=== PATIENT | female | born 1950 | race American Indian/Alaskan Native ===

== ENCOUNTER 2017-02-23 09:24 | Emergency (ER) | payer SELFPAY ==
--- NOTE | 2017-02-23 10:25 | Emergency Department Report ---
HPI - General Chief Complaint: Medical Clearance Time Seen by Provider: 02/23/17 10:00 - HPI HPI: 66-year-old Afro-Cypriot female presents to the emergency department from [facility] for a medical clearance. The patient has an existing Moore catheter in place and staff at [facility] stated that they could not accept the patient with a Moore catheter. The patient has a history of insulin- dependent diabetes that has been known to be uncontrolled as well as some diabetic ulcers to the feet. She also has a history of chronic kidney disease, anxiety, depression. The patient says she is unaware as to why she has the Moore catheter in place and says she thinks it was because "I pee a lot." The patient has some paperwork from another hospital that showed the patient to have previous uncontrolled diabetes with pseudohyponatremia. It appears that while she was at this hospital she began bleeding of suicidal ideation secondary to her decline in health. Therefore she presents with a 1013 signed [facility] for active suicidal ideations. Right now the patient's only complaints are that she is hungry and sleepy. ED Past Medical Hx - Past Medical History Hx Diabetes: Yes Hx Renal Disease: Yes (CKD III) Hx Psychiatric Treatment: Yes (anxiety/depression) Additional medical history: toxic metabolic encephalopathy - Social History Smoking Status: Current Every Day Smoker Substance Use Type: None - Medications Home Medications: Home Medications Medication Instructions Recorded Confirmed Last Taken Type Unobtainable 02/23/17 02/23/17 Unknown History ED Review of Systems ROS: Stated complaint: SUICIDAL IDEATION/MEDICAL CLEARANCE Other details as noted in HPI Comment: All other systems reviewed and negative Constitutional: denies: chills, fever Eyes: denies: eye pain, eye discharge, vision change ENT: denies: ear pain, throat pain Respiratory: denies: cough, shortness of breath, wheezing Cardiovascular: denies: chest pain, palpitations Endocrine: increased thirst, increased urine Gastrointestinal: denies: abdominal pain, nausea, diarrhea Genitourinary: frequency. denies: dysuria, discharge Musculoskeletal: denies: back pain, joint swelling, arthralgia Skin: denies: rash, lesions Neurological: denies: headache, weakness, paresthesias Physical Exam - Physical Exam Vital Signs: Vital Signs 02/23/17 02/23/17 09:35 09:56 Temperature 98.1 F Pulse Rate 77 Respiratory 16 16 Rate Blood Pressure 163/92 O2 Sat by Pulse 97 99 Oximetry Physical Exam: GENERAL: The patient is well-developed well-nourished. HEENT: Normocephalic. Atraumatic. Extraocular motions are intact. Patient has moist mucous membranes. Pupils equal reactive to light bilaterally. NECK: Supple. Trachea is midline. CHEST/LUNGS: Clear to auscultation. There is no respiratory distress noted. HEART/CARDIOVASCULAR: Regular. There is no tachycardia. There is no gallop rub or murmur. ABDOMEN: Abdomen is soft, nontender. Patient has normal bowel sounds. There is no abdominal distention. SKIN: Skin is warm and dry. There are some chronic plantar foot ulcerations but no purulent discharge and no surrounding erythema. NEURO: The patient is awake, alert. The patient is cooperative. The patient has no focal neurologic deficits. The patient has normal speech. MUSCULOSKELETAL: There is no tenderness or deformity. There is no evidence of acute injury. ED Course Vital Signs 02/23/17 02/23/17 09:35 09:56 Temperature 98.1 F Pulse Rate 77 Respiratory 16 16 Rate Blood Pressure 163/92 O2 Sat by Pulse 97 99 Oximetry ED Medical Decision Making - Lab Data Result diagrams: 02/23/17 10:10 02/23/17 10:10 - Medical Decision Making 66-year-old female presents to the emergency department from [facility] where she was denied admission for psychiatric admission secondary to the fact that she has a Moore catheter in place. The patient came from another emergency department with paperwork that shows that the patient had suicidal ideations and appeared to be secondary to her depression with her declining health. She was having issues and was admitted there originally because of hyperglycemia and pseudohyponatremia. Patient does have some mild hyperglycemia here today but she does not appear to be in DKA or HHNK and the rest of her labs are mostly unremarkable and do not show any etiology of her symptoms. The patient does have chronic diabetic foot ulcers but she also presents with imaging done recently at this other hospital that shows no signs of osteomyelitis and on physical exam does not appear to be acutely infected. Another 1013 was filled out since she is now on a different county for the same suicidal ideations and the patient will need a psychiatric consultation and probable continued placement. She has a very mild urinary tract infection and will be placed on Macrobid. She will have Accu-Cheks done with meals and will be placed on a sliding scale. Otherwise the patient appears medically cleared for psychiatric placement. Critical Care Time: No Critical care attestation.: If time is entered above; I have spent that time in minutes in the direct care of this critically ill patient, excluding procedure time. ED Disposition Clinical Impression: Suicidal ideations, Hyperglycemia Diabetic foot ulcers Qualifiers: Diabetic foot ulcer location: unspecified part of foot Diabetes mellitus type: type 1 Laterality: unspecified laterality Non-pressure ulcer stage: unspecified non-pressure ulcer stage Qualified Code(s): E10.621 - Type 1 diabetes mellitus with foot ulcer; L97.509 - Non-pressure chronic ulcer of other part of unspecified foot with unspecified severity Disposition: DC/TX-65 PSY HOSP/PSY UNIT Is pt being admited?: No Condition: Stable Instructions: Diabetes Mellitus Type 2 in Adults (ED) Time of Disposition: 18:20
[2017-02-23 10:34] LABS: Bilirubin,Urine NEG (Negative); Blood,Urine LG (Negative); Ketones,Urine NEG (Negative); Leukocyte Esterase,Urine LG (Negative); Nitrite,Urine NEG (Negative); Protein,Urine <15 mg/dL mg/dL (Negative); Urobilinogen,Urine < 2.0 mg/dL (<2.0)
[2017-02-23 10:50] LABS: Basophils % (Auto) 0.4 % (0.0-1.8); Eosinophils % (Auto) 2.7 % (0.0-4.3); Hematocrit 32.2 % (30.3-42.9); Hemoglobin 10.8 gm/dl (10.1-14.3); Mean Corpuscular HGB Conc 34 % (30-34); Mean Corpuscular Hemoglobin 30 pg (28-32); Mean Corpuscular Volume 90 fl (79-97); Platelet Count 228 K/mm3 (140-440); Red Blood Count 3.58 M/mm3 (3.65-5.03); Red Cell Distribution Width 15.4 % (13.2-15.2); White Blood Count 10.7 K/mm3 (4.5-11.0)
[2017-02-23 11:15] LABS: Anion Gap 15 mmol/L; Blood Urea Nitrogen 14 mg/dL (7-17); Calcium 8.5 mg/dL (8.4-10.2); Carbon Dioxide 22 mmol/L (22-30); Chloride 106.8 mmol/L (98-107); Glucose 194 mg/dL (65-100); Potassium 4.1 mmol/L (3.6-5.0); Sodium 140 mmol/L (137-145)
[2017-02-23] MEDS ORDERED: MACROBID PO ONE (11:42)
[2017-02-23] MEDS ORDERED: XANAX PO ONE (14:18)
--- NOTE | 2017-02-23 16:33 | Consultation ---
History of Present Illness - Reason for Consult Consult date: 02/23/17 Reason for consult: psychiatric evaluation, depression - Chief Complaint Chief complaint: "It's too hard living, I want to " 66-year-old female seen in the emergency department for psychiatric evaluation. She was initially in a hospital in [place] and determined to be experiencing severe depressive symptoms. She was transferred to [place] inpatient facility, and she was not admitted there due to medical acuity and was then brought to [facility]. It is reported she has a Moore catheter and a decubitus. She is alert and oriented 4 on exam. She states she's been depressed ever since her toe was amputated in October 2016. She states from then she quit eating and did not take her insulin. She states she stopped caring about herself and did not take care of her ADLs. She gave her food stamp card away because she wasn't eating. She states her brother's been paying her bills because she can't. 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 She expresses hopeless and helpless ideation. She denies psychotic symptoms. She reports taking Prozac, unknown dose. She denies homicidal ideation. She denies a history of dementia. Medications and Allergies Allergies Allergy/AdvReac Type Severity Reaction Status Date / Time No Known Allergies Allergy Verified 02/23/17 09:45 Home Medications Medication Instructions Recorded Confirmed Last Taken Type Unobtainable 02/23/17 02/23/17 Unknown History Past psychiatric history - Past Medical History Past Medical History: other (has Moore catheter, decubitus) - past Psychiatric treatment and history Psych: Depression psychiatric treatment history: Denies a history of bipolar disorder Denies a history of manic symptoms - Social History Social history: Lives alone, other (denies alcohol or illicit substance use) Mental Status Exam - Vital signs Last Vital Signs Temp 98.1 F 02/23/17 09:35 Pulse 68 02/23/17 13:49 Resp 16 02/23/17 13:49 BP 124/78 02/23/17 13:49 Pulse Ox 99 02/23/17 13:49 - Exam Orientation: time, place, person Affect: depressed (dysphoric) Mood: congruent with affect Thought content: other (suicidal ideation) Thought Process: Intact Perceptions: none Speech: other (soft) Concentration: focused Motor activity: other (retarded) Level of consciousness: alert Memory: Intact Sleep Symptoms: Difficulty Falling Asleep Appetite: decreased Interaction: cooperative Results Result Diagrams: 02/23/17 10:10 02/23/17 10:10 Abnormal lab results 02/23/17 02/23/17 02/23/17 Range/Units 09:27 09:45 10:10 RBC 3.58 L (3.65-5.03) M/mm3 RDW 15.4 H (13.2-15.2) % Seg Neutrophils % 74.4 H (40.0-70.0) % Seg Neutrophils # 8.0 H (1.8-7.7) K/mm3 Glucose (65-100) mg/dL POC Glucose 247 H (70-105) Urine WBC (Auto) 15.0 H (0.0-6.0) /HPF 02/23/17 Range/Units 10:10 RBC (3.65-5.03) M/mm3 RDW (13.2-15.2) % Seg Neutrophils % (40.0-70.0) % Seg Neutrophils # (1.8-7.7) K/mm3 Glucose 194 H (65-100) mg/dL POC Glucose (70-105) Urine WBC (Auto) (0.0-6.0) /HPF All other labs normal. Assessment and Plan Assessment and plan: Impression: Suicidal ideation Purposefully stopped self-care gradually over the past few months Major depressive disorder, severe Vegetative symptoms of depression Recommendation: Given the severity of the depression and the impact on her physical health, she is a good candidate for ECT. Once acute medical problems are addressed, plan for transfer to inpatient psychiatric unit. A psychiatric unit with medical capabilities is preferable, as well as access to ECT. It is unclear if this is available. Start Prozac 20 mg daily for depressive symptoms. She reports taking this medication at home.
[2017-02-23] MEDS ORDERED: D50W (25GM) IV PRN (18:10)
[2017-02-24] MEDS: PROzac PO SCH (14:48)
--- NOTE | 2017-02-24 19:46 | Progress Note ---
Subjective - Reason for Consult Consult date: 02/24/17 Reason for consult: follow up - Chief Complaint Chief complaint: "I'm not good" 66-year-old female seen in the emergency department for psychiatric follow up. She was initially in a hospital in [place] and determined to be experiencing severe depressive symptoms. She was transferred to [place] inpatient facility, and she was not admitted there due to medical acuity and was then brought to [facility]. It is reported she has a Moore catheter a vascular wound on her right foot. She is alert and oriented 4 on exam. She states she's been depressed ever since her toe was amputated in October 2016 and when she was fired from the [employer]. She states that was her extra income to live on and eat. She states from then she quit eating and did not take her insulin. She expresses hopeless and helpless ideation. She denies psychotic symptoms. She does not want to take prozac and states it has been ineffective. She denies homicidal ideation. She denies a history of dementia. She does not remember meeting this author yesterday but later remembered. Mental Status Exam - Vital signs Last Vital Signs Temp 98.1 F 02/23/17 20:00 Pulse 75 02/23/17 20:00 Resp 20 02/23/17 20:00 BP 120/68 02/23/17 20:00 Pulse Ox 99 02/23/17 20:00 - Exam Narrative exam: - Exam Orientation: time, place, person Affect: depressed (dysphoric) Mood: congruent with affect Thought content: other (suicidal ideation) Thought Process: Intact Perceptions: none Speech: regular rate and rhythm today, was yelling earlier in the day Concentration: focused Motor activity: other (retarded) but ambulatory Level of consciousness: alert Memory: Intact Sleep Symptoms: Difficulty Falling Asleep Appetite: decreased Interaction: cooperative Assessment and Plan Impression: Suicidal ideation Purposefully stopped self-care gradually over the past few months Major depressive disorder, severe Vegetative symptoms of depression Recommendation: Given the severity of the depression and the impact on her physical health, she is a good candidate for ECT. Once acute medical problems are addressed, plan for transfer to inpatient psychiatric unit. A psychiatric unit with medical capabilities is preferable, as well as access to ECT. It is unclear if this is available. Continue Prozac 20 mg daily for depressive symptoms. She reports taking this medication at home. Plan to add Remeron 7.5mg hs for sleep/depression and it would help with her appetite
[2017-02-24] MEDS ORDERED: AMBIEN PO ONE (21:30)
[2017-02-24] MEDS: MACROBID PO SCH (21:55)
[2017-02-25] MEDS ORDERED: BENADRYL PO ONE (03:23)
[2017-02-25] MEDS ORDERED: ATIVAN PO ONE (03:23)
--- NOTE | 2017-02-25 03:25 | Emergency Department Report ---
Blank Doc - Documentation Documentation: It was brought to my attention by RN that patient woke up complaining of shortness of breath. Patient states she is having difficulty sleeping and that her shortness of breath feels like her previous anxiety episodes. Patient received Ambien 5 mg and stayed sleep for about 2 hours and woke up feeling this way. EKG shows normal sinus rate [address] [place]. Patient satting 96% on room air. No tachypnea or tachycardia noted. Ativan 1 mg and Benadryl 25 mg to 8 and patient's anxiety and sleep.
[2017-02-25] MEDS: MACROBID PO SCH (10:25)
[2017-02-25] MEDS: PROzac PO SCH (10:30)
[2017-02-25] MEDS ORDERED: NACL 0.9% 1000 ML 1,000 ML IV ONE (10:48)
--- NOTE | 2017-02-25 18:35 | Progress Note ---
Subjective - Reason for Consult Consult date: 02/25/17 Reason for consult: Psychiatry Follow-up - Chief Complaint Chief complaint: "I am tired" 66-year-old female seen in the emergency department for psychiatric follow up. Today patient is calm, cooperative but emotional during assessment. She stated that she is tired of the way her life is going lately. She stated losing her job at her [employer] that paid her 1500 a month. She stated that her disability is pending and only receive 920 a month from social security. She stated that her brother pay her bills because of lack of funds. She stated that she did not want to eat prior to her admission to [facility] because of her depression. Today patient acknowledged that she want to eat her meals. She stated that she ate her breakfast and lunch today. She could not confirm or deny that she is suicidal. When I asked her that question (reference suicide), she became emotional. She denies HI's and AVH's. She rate her depression 6/10, with 10 being the worse. She denies any side effects of her medications. Mental Status Exam - Vital signs Last Vital Signs Temp 98.8 F 02/25/17 16:51 Pulse 95 H 02/25/17 16:51 Resp 16 02/25/17 16:51 BP 153/75 02/25/17 16:51 Pulse Ox 100 02/25/17 16:51 Assessment and Plan Impression: Historical Dx: Depressive DO Severe type. Today patient is calm, cooperative but emotional during assessment. Recommendation/Plan: Continue 1013. Given the severity of the depression and the impact on her physical health, she is a good candidate for ECT. Once acute medical problems are addressed, plan for transfer to inpatient psychiatric unit. A psychiatric unit with medical capabilities is preferable, as well as access to ECT. Continue Prozac 20 mg daily for depressive symptoms. Discussed possible suicidality/medication induced tomas with patient reference Prozac with patient. Discussed generalize coping skills with patients.
[2017-02-26] MEDS: PROzac PO SCH (09:37)
[2017-02-26] MEDS: MACROBID PO SCH ×2 (09:37→22:30)
--- NOTE | 2017-02-26 16:40 | Progress Note ---
Subjective - Reason for Consult Consult date: 02/26/17 Reason for consult: Psychiatry Follow-up - Chief Complaint Chief complaint: "I am ready to leave" 66-year-old female seen in the emergency department for psychiatric follow up. Today patient is calm and cooperative during assessment. She is adamant about leaving and going home. She stated that she feels better mentally and physically. Patient's arias was D/C'd yesterday and stated, "I'm glad that's out of me." Patient was ambulating around the ER and had to redirected multiple times to stay in her room. She denies SI/HI's and AVH's. She rate her depression 5/10, with 10 being the worse. Mental Status Exam - Vital signs Last Vital Signs Temp 98.0 F 02/26/17 07:30 Pulse 82 02/26/17 07:30 Resp 20 02/26/17 07:30 BP 147/87 02/26/17 07:30 Pulse Ox 100 02/26/17 07:30 - Exam Narrative exam: MSE: Appearance: calm Behavior: regular eye contact Speech: regular rate and tone Mood: "okay" Affect: congruent to mood Thought Process: circumstantial Thought Content: denies SI/HI's and AVH's Motor Activity: ambulatory Cognition: A/Ox 3 Insight: limited Judgment: limited Assessment and Plan Impression:Historical Dx: Depressive DO Severe type. Today patient is calm and cooperative. She denies SI/HI's. Recommendation/Plan: Continue 1013. If the ER recommend outpatient follow-up and the patient is appropriate for discharge, she can return back to inpatient psy services ([facility]). Continue Prozac 20 mg daily for depressive symptoms. Discussed possible suicidality/medication induced tomas with patient reference Prozac with patient. Discussed generalize coping skills with patients.
[2017-02-26] MEDS ORDERED: ATIVAN PO ONE (23:31)
[2017-02-27] MEDS: MACROBID PO SCH (09:53)
[2017-02-27] MEDS: PROzac PO SCH (09:54)
--- NOTE | 2017-02-27 14:55 | Progress Note ---
Subjective - Reason for Consult Consult date: 02/27/17 Reason for consult: follow up, suicide risk assessment - Chief Complaint Chief complaint: "I am ready to leave" 66-year-old female seen in the emergency department for psychiatric follow up. Today patient is calm and cooperative during assessment. She stated that she feels better mentally and physically. Patient was ambulating around the ER joking with staff. She denies SI/HI and AVH. She continues to report sadness about losing her job and the amputation, but voices a plan to manage her stressors. She continues to have the support of her brother and sister. Mental Status Exam - Vital signs Last Vital Signs Temp 98.2 F 02/27/17 08:18 Pulse 90 02/27/17 08:18 Resp 18 02/27/17 08:18 BP 136/70 02/27/17 08:18 Pulse Ox 100 02/27/17 08:18 Assessment and Plan MSE: Appearance: calm Behavior: regular eye contact Speech: regular rate and tone Mood: "I'm good" Affect: tearful at times Thought Process: circumstantial Thought Content: denies SI/HI and AVH Motor Activity: ambulatory Cognition: A/Ox 3 Insight: limited Judgment: limited Assessment and Plan Impression:Historical Dx: Depressive DO Severe type. Today patient is calm and cooperative. She denies SI/HI. Recommendation/Plan: Continue 1013. If the ER recommend outpatient follow-up and the patient is appropriate for discharge, she can return back to inpatient psy services ([facility]). Continue Prozac 20 mg daily for depressive symptoms. Discussed possible suicidality/medication induced tomas with patient reference Prozac with patient. Discussed generalize coping skills with patients. I. This screening and assessment is based on information collected from the following sources: Patient, patient's sister, medical record II. SUICIDE RISK SCREENING (within last 30 days): A.) Suicidal thoughts/behaviors: On admission: She had thoughts of giving up on life. Stated she wanted to and was depressed. She was not eating the proper diet and lost weight. She currently denies suicidal ideation and has been consistently denying suicidal ideation for the past 3 days. She has been attending to her ADLs while at the hospital and complains about the food not being for diabetics. Further information was obtained after admission to indicate she did not have the resources to buy appropriate foods but was not telling her family. SUICIDE RISK ASSESSMENT III. FACTORS THAT INCREASE RISK: A.) Demographic and Substance Use Factors: Lives alone. No alcohol or substance use B.) Current/Recent Factors (within past 3 months): Psychosocial/Environmental Factors: Was terminated from her work at the [employer] and lost income. Physical Illness: Toe amputation 10/2016, diabetes Cognitive/Psychological Factors: no memory disturbances C.) Historical Factors: was treated for depression as an outpatient by her primary care provider. She was taking Prozac. No previous suicide attempts. D.) Diagnostic/Symptom/Treatment Factors: E.) Acute Risk Factor Severity Mild Other factors for this individual that increase risk: none IV. FACTORS THAT DECREASE RISK: Resilience/Protective Factors: Buddhist beliefs. States she is a "strong, independent woman." Other factors for this individual that decrease risk: Brother and Sister live less than 10 minutes away and check on her twice a day. Brother pays the bills she cannot. She goes to her doctor's appointments as scheduled. V. Clinician's Formulation of Risk and Determination of level of Care: The patient is alert and properly attending to her ADLs. She voiced a need to care for her diabetes appropriately. Her sister and brother are supportive. Her sister has visited her in the hospital and voiced her support. Estimation of Imminent Risk: Based on the findings above, she does not appear to be at imminent risk of self harm. Determination of Level of Care based on Suicide Risk: Recommend a partial hospitalization program or intensive outpatient program for additional support. Narrative description of clinical reasoning: She would benefit from the structure and support of a [facility] environment in addition to family support. She has been eating/drinking while in the ER. She has been interacting with staff and voiced her needs effectively. . Plan and Interventions based on Suicide Risk: Rescind 1013 Safety contract done by data governance consultant with patient and her sister. Outpatient referrals provided for [facility]. VII. Discharge/After Hours Support Plan: 24 hour crisis line. Call for suicidal ideation or worsening of depressive symptoms.
--- NOTE | 2017-02-27 20:32 | Event Note ---
Date: 02/27/17 The patient is reassessed. She is not homicidal. She is not suicidal. She is alert and oriented 3, with a GCS of 15, and an NIH score of 0. She has chronic hyperglycemia, and she can follow up with outpatient primary care doctor for this. Her 1013 has been discontinued by the psychiatric team. Vital Signs 02/23/17 02/23/17 02/23/17 09:35 09:56 13:49 Temperature 98.1 F Pulse Rate 77 68 Respiratory 16 16 16 Rate Blood Pressure 163/92 Blood Pressure 124/78 [Left] O2 Sat by Pulse 97 99 99 Oximetry 02/23/17 02/23/17 02/24/17 18:20 20:00 20:01 Temperature 98.1 F Pulse Rate 82 75 Respiratory 14 20 18 Rate Blood Pressure Blood Pressure 130/69 120/68 [Left] O2 Sat by Pulse 96 99 98 Oximetry 02/24/17 02/25/17 02/25/17 20:40 03:10 09:06 Temperature 98.4 F 98.3 F Pulse Rate 86 91 H 81 Respiratory 18 14 16 Rate Blood Pressure Blood Pressure 109/66 139/77 154/85 [Left] O2 Sat by Pulse 98 99 99 Oximetry 02/25/17 02/25/17 02/26/17 09:22 16:51 05:42 Temperature 98.8 F Pulse Rate 95 H Respiratory 18 16 16 Rate Blood Pressure Blood Pressure 153/75 [Left] O2 Sat by Pulse 99 100 100 Oximetry 02/26/17 02/27/17 02/27/17 07:30 01:29 01:30 Temperature 98.0 F 98 F Pulse Rate 82 61 Respiratory 20 16 16 Rate Blood Pressure Blood Pressure 147/87 128/71 [Left] O2 Sat by Pulse 100 95 95 Oximetry 02/27/17 08:18 Temperature 98.2 F Pulse Rate 90 Respiratory 18 Rate Blood Pressure Blood Pressure 136/70 [Left] O2 Sat by Pulse 100 Oximetry Labs 02/23/17 02/23/17 02/23/17 09:27 09:45 10:10 WBC 10.7 RBC 3.58 L Hgb 10.8 Hct 32.2 MCV 90 MCH 30 MCHC 34 RDW 15.4 H Plt Count 228 Lymph % (Auto) 15.6 Bureau % (Auto) 6.9 Eos % (Auto) 2.7 Baso % (Auto) 0.4 Lymph # 1.7 Bureau # 0.7 Eos # 0.3 Baso # 0.0 Seg Neutrophils % 74.4 H Seg Neutrophils # 8.0 H Sodium Potassium Chloride Carbon Dioxide Anion Gap BUN Creatinine Estimated GFR BUN/Creatinine Ratio Glucose POC Glucose 247 H Calcium Urine Color Straw Urine Turbidity Cloudy Urine pH 5.0 Ur Specific [place] 1.010 Urine Protein <15 mg/dl Urine Glucose (UA) >=500 Urine Ketones Neg Urine Blood Lg Urine Nitrite Neg Urine Bilirubin Neg Urine Urobilinogen < 2.0 Ur Leukocyte Esterase Lg Urine WBC (Auto) 15.0 H Urine RBC (Auto) 20.0 U Epithel Cells (Auto) 5.0 Ur Yeast w Hyphae Many Urine Yeast (Budding) Many Plasma/Serum Alcohol 02/23/17 02/23/17 02/23/17 10:10 10:45 13:37 WBC RBC Hgb Hct MCV MCH MCHC RDW Plt Count Lymph % (Auto) Bureau % (Auto) Eos % (Auto) Baso % (Auto) Lymph # Bureau # Eos # Baso # Seg Neutrophils % Seg Neutrophils # Sodium 140 Potassium 4.1 Chloride 106.8 Carbon Dioxide 22 Anion Gap 15 BUN 14 Creatinine 1.0 Estimated GFR > 60 BUN/Creatinine Ratio 14.00 Glucose 194 H POC Glucose 276 H Calcium 8.5 Urine Color Urine Turbidity Urine pH Ur Specific [place] Urine Protein Urine Glucose (UA) Urine Ketones Urine Blood Urine Nitrite Urine Bilirubin Urine Urobilinogen Ur Leukocyte Esterase Urine WBC (Auto) Urine RBC (Auto) U Epithel Cells (Auto) Ur Yeast w Hyphae Urine Yeast (Budding) Plasma/Serum Alcohol < 0.01 02/23/17 02/23/17 02/24/17 18:11 22:07 07:25 WBC RBC Hgb Hct MCV MCH MCHC RDW Plt Count Lymph % (Auto) Bureau % (Auto) Eos % (Auto) Baso % (Auto) Lymph # Bureau # Eos # Baso # Seg Neutrophils % Seg Neutrophils # Sodium Potassium Chloride Carbon Dioxide Anion Gap BUN Creatinine Estimated GFR BUN/Creatinine Ratio Glucose POC Glucose 342 H 136 H 449 H Calcium Urine Color Urine Turbidity Urine pH Ur Specific [place] Urine Protein Urine Glucose (UA) Urine Ketones Urine Blood Urine Nitrite Urine Bilirubin Urine Urobilinogen Ur Leukocyte Esterase Urine WBC (Auto) Urine RBC (Auto) U Epithel Cells (Auto) Ur Yeast w Hyphae Urine Yeast (Budding) Plasma/Serum Alcohol 02/24/17 02/24/17 02/25/17 14:27 22:00 10:21 WBC RBC Hgb Hct MCV MCH MCHC RDW Plt Count Lymph % (Auto) Bureau % (Auto) Eos % (Auto) Baso % (Auto) Lymph # Bureau # Eos # Baso # Seg Neutrophils % Seg Neutrophils # Sodium Potassium Chloride Carbon Dioxide Anion Gap BUN Creatinine Estimated GFR BUN/Creatinine Ratio Glucose POC Glucose 408 H 387 H 486 H Calcium Urine Color Urine Turbidity Urine pH Ur Specific [place] Urine Protein Urine Glucose (UA) Urine Ketones Urine Blood Urine Nitrite Urine Bilirubin Urine Urobilinogen Ur Leukocyte Esterase Urine WBC (Auto) Urine RBC (Auto) U Epithel Cells (Auto) Ur Yeast w Hyphae Urine Yeast (Budding) Plasma/Serum Alcohol 02/25/17 02/25/17 02/25/17 11:40 17:36 20:13 WBC RBC Hgb Hct MCV MCH MCHC RDW Plt Count Lymph % (Auto) Bureau % (Auto) Eos % (Auto) Baso % (Auto) Lymph # Bureau # Eos # Baso # Seg Neutrophils % Seg Neutrophils # Sodium Potassium Chloride Carbon Dioxide Anion Gap BUN Creatinine Estimated GFR BUN/Creatinine Ratio Glucose POC Glucose 351 H 478 H 315 H Calcium Urine Color Urine Turbidity Urine pH Ur Specific [place] Urine Protein Urine Glucose (UA) Urine Ketones Urine Blood Urine Nitrite Urine Bilirubin Urine Urobilinogen Ur Leukocyte Esterase Urine WBC (Auto) Urine RBC (Auto) U Epithel Cells (Auto) Ur Yeast w Hyphae Urine Yeast (Budding) Plasma/Serum Alcohol 02/26/17 02/26/17 02/26/17 07:19 11:29 15:04 WBC RBC Hgb Hct MCV MCH MCHC RDW Plt Count Lymph % (Auto) Bureau % (Auto) Eos % (Auto) Baso % (Auto) Lymph # Bureau # Eos # Baso # Seg Neutrophils % Seg Neutrophils # Sodium Potassium Chloride Carbon Dioxide Anion Gap BUN Creatinine Estimated GFR BUN/Creatinine Ratio Glucose POC Glucose 375 H 322 H > 500 H Calcium Urine Color Urine Turbidity Urine pH Ur Specific [place] Urine Protein Urine Glucose (UA) Urine Ketones Urine Blood Urine Nitrite Urine Bilirubin Urine Urobilinogen Ur Leukocyte Esterase Urine WBC (Auto) Urine RBC (Auto) U Epithel Cells (Auto) Ur Yeast w Hyphae Urine Yeast (Budding) Plasma/Serum Alcohol 07/02/26/17 02/26/17 16:55 17:53 22:19 WBC RBC Hgb Hct MCV MCH MCHC RDW Plt Count Lymph % (Auto) Bureau % (Auto) Eos % (Auto) Baso % (Auto) Lymph # Bureau # Eos # Baso # Seg Neutrophils % Seg Neutrophils # Sodium Potassium Chloride Carbon Dioxide Anion Gap BUN Creatinine Estimated GFR BUN/Creatinine Ratio Glucose POC Glucose 370 H 269 H 269 H Calcium Urine Color Urine Turbidity Urine pH Ur Specific [place] Urine Protein Urine Glucose (UA) Urine Ketones Urine Blood Urine Nitrite Urine Bilirubin Urine Urobilinogen Ur Leukocyte Esterase Urine WBC (Auto) Urine RBC (Auto) U Epithel Cells (Auto) Ur Yeast w Hyphae Urine Yeast (Budding) Plasma/Serum Alcohol 02/27/17 02/27/17 02/27/17 08:14 11:38 19:13 WBC RBC Hgb Hct MCV MCH MCHC RDW Plt Count Lymph % (Auto) Bureau % (Auto) Eos % (Auto) Baso % (Auto) Lymph # Bureau # Eos # Baso # Seg Neutrophils % Seg Neutrophils # Sodium Potassium Chloride Carbon Dioxide Anion Gap BUN Creatinine Estimated GFR BUN/Creatinine Ratio Glucose POC Glucose 359 H 392 H 313 H Calcium Urine Color Urine Turbidity Urine pH Ur Specific [place] Urine Protein Urine Glucose (UA) Urine Ketones Urine Blood Urine Nitrite Urine Bilirubin Urine Urobilinogen Ur Leukocyte Esterase Urine WBC (Auto) Urine RBC (Auto) U Epithel Cells (Auto) Ur Yeast w Hyphae Urine Yeast (Budding) Plasma/Serum Alcohol
[2017-02-27 21:12] VITALS: BP 118/70
== END 2017-02-27 21:00 ==
LOC: ED 09:24 → EEVIPCON 09:24 → ED 02-27 21:00
DX: E10.621 Type 1 diabetes mellitus with foot ulcer (principal); L97.509 Non-pressure chronic ulcer of other part of unspecified foot with unspecified severity; R45.851 Suicidal ideations; E11.65 Type 2 diabetes mellitus with hyperglycemia; F32.9 Major depressive disorder, single episode, unspecified; N18.3 Chronic kidney disease, stage 3 (moderate); F17.200 Nicotine dependence, unspecified, uncomplicated
CPT/HCPCS: 36415; 51702; 80048; 81001; 82962; 85025; 96361; 96374; 96376; 99285; G0480; J7030; 80320; J1815